=== PATIENT | male | born 1985 | race American Indian/Alaskan Native ===

== ENCOUNTER 2016-09-20 10:48 | Day surgery (SDC) | payer MEDICAID ==
[2015-11-12 09:45] VITALS: BMI 19.2
[2016-09-20 11:37] VITALS: O2SAT 100
[2016-09-20] MEDS ORDERED: Propofol 10 mg/ml Inj (20 ML) ONE (11:57)
[2016-09-20] MEDS ORDERED: Midazolam 2 MG/2 ML VIAL ONE (11:57)
[2016-09-20] MEDS ORDERED: Succinylcholine 200 mg/10 ml Inj IV ONE (11:57)
[2016-09-20] MEDS ORDERED: Sevoflurane - Inhalation Anesthetic Liq (250 ml) ONE (12:15)
[2016-09-20] MEDS ORDERED: Lidocaine 1% Inj (20ml) ONE (12:27)
[2016-09-20] MEDS ORDERED: Lactated Ringer's 1,000 ML IV ONE (13:49)
[2016-09-20] MEDS ORDERED: Lactated Ringer's 1,000 ML IV SCH (14:47)
--- NOTE | 2016-09-20 14:47 | PCM.SURG1 ---
Surgeon's Initial Post Op Note - Surgeon's Notes Surgeon: Dr. Perdomo Coatings Inspector: Dr. Quiroga PGY2 Type of Anesthesia: General Endo Pre-Operative Diagnosis: Incarcerated Umbilical Hernia Operative Findings: same Post-Operative Diagnosis: same Operation Performed: Repair of Incarcerated Umbilical Hernia (primary repair) Specimen/Specimens Removed: incarcerated umbilical fat Estimated Blood Loss: EBL {In ML}: 5 Blood Products Given: N/A Drains Used: No Drains Post-Op Condition: Good Date of Surgery/Procedure: 09/20/16 Time of Surgery/Procedure: 14:47
--- NOTE | 2016-09-20 14:51 | CP.SDSHP ---
Same Day Surgery H & P - Allergies Allergies: Allergies No Known Allergies Allergy (Verified 11/12/15 09:44) - Physical Exam Vital Signs: Vital Signs 09/20/16 11:36 Temperature 97.6 F Pulse Rate 58 L Respiratory 18 Rate Blood Pressure 127/73 O2 Sat by Pulse 100 Oximetry Short Stay Discharge - Short Stay Discharge Admitting Diagnosis/Reason for Visit: K42.9 Disposition: HOME/ ROUTINE Medications: oxyCODONE/Acetaminophen [Percocet 5/325 mg Tab] 1 tab PO Q4H PRN #10 tab PRN Reason: Pain, Moderate (4-7) Referrals: Harley Hsu MD [Primary Care Provider] - Zoë Perdomo MD [Staff Provider] - Follow-up: 1 week Additional Instructions (Diet, Activity): Regular diet. Light activities including walking. No Heavy lifting >10lbs, and No abdominal excercising including crunches for 6 weeks.
[2016-09-20 15:51] VITALS: RESP 18
[2016-09-20] MEDS ORDERED: DiphenhydrAMINE 50 mg/ml Inj IVP PRN (16:30)
[2016-09-20 17:12] VITALS: BP 136/76; PULSE 52; TEMP 97.4
--- NOTE | 2016-09-21 06:38 | OP ---
PROCEDURE DATE: 09/20/2016 SURGEON: Dr. Zoë Perdomo. SHELLFISH BED WORKER: Dr. Quiroga. ANESTHESIA: General, Dr. Acosta. PREOPERATIVE DIAGNOSIS: Incarcerated umbilical hernia. POSTOPERATIVE DIAGNOSIS: Incarcerated umbilical hernia. PROCEDURE: Umbilical hernia repair. DESCRIPTION OF OPERATION: With the patient in the supine position under adequate general anesthesia, the abdomen was prepped and draped in usual sterile manner. A curved incision was made along the lower edge of the umbilicus, taken down through the full thickness of skin. The umbilical stalk was dissected and the skin was completely elevated off the stalk and the stalk divided. There was noted to be a small amount of incarcerated fat within the stalk and extending upward towards the skin. This was removed. The umbilical defect was noted to be fairly small, approximately 2 mm in diameter and additional fatty material was noted exiting from a second defect just to the right of the actual umbilicus, also a very small defect of approximately 2 mm. The 2 defects were combined to allow the additional fatty material to be reduced and a portion of the incarcerated fatty material was removed and sent as specimen. The combined defect now had a length of approximately 8 mm with a width of under 2 mm and the fascia was repaired transversely with simple sutures of 0 Vicryl. The base of the umbilical skin was sutured down to the repair with a 4-0 plain gut suture and closure was performed with running subcuticular suture of 4-0 Monocryl and Steri-Strips. A compression dressing was applied. The patient tolerated the procedure well and transferred to recovery room in stable condition. Estimated blood loss for the procedure was 5 mL. Zoë Perdomo MD cc: [id number] TT: 09/21/2016 06:37:30 tn [email or web address]
== END 2016-09-20 17:20 | disposition home or self-care (01) ==
LOC: H.OPSURG 10:48
PROVIDERS: ATTEND Specialist
DX: K42.9 Umbilical hernia without obstruction or gangrene (principal); Z21 Asymptomatic human immunodeficiency virus [HIV] infection status